=== PATIENT | male | born 1965 | race Hispanic/Latino ===

== ENCOUNTER 2021-02-07 19:13 | Emergency (ER) | payer MEDICAID, OTHER, SELFPAY ==
[2021-02-07] MEDS ORDERED: Boostrix 0.5 ML (Tdap) VIAL ONE (21:14)
[2021-02-07] MEDS ORDERED: Amoxicillin/Potassium Clav 875 MG TAB ONE (21:14)
[2021-02-07] MEDS ORDERED: Rabies Vaccine Human 2.5 UNITS VIAL ONE ×2 (21:22→21:37)
== END 2021-02-07 22:18 | disposition home or self-care (01) ==
LOC: BURERS 19:13
DX: S81.852A Open bite, left lower leg, initial encounter (principal); S81.851A Open bite, right lower leg, initial encounter; F17.210 Nicotine dependence, cigarettes, uncomplicated; I10 Essential (primary) hypertension; Z23 Encounter for immunization; W54.0XXA Bitten by dog, initial encounter
CPT/HCPCS: 90376; 90471; 90472; 90675; 90715; 96372